=== PATIENT | female | born 1975 | race Caucasian/White ===

== ENCOUNTER 2016-06-27 12:38 | Emergency (ER) | payer OTHER ==
[~2016-06-27 12:38] MED LIST: ABIL15TA OR; CELE20TA OR; CLON1TAB PO; HUMI40KI SC; KLON0.5T OR; LAMI1TAB7 PO; LATU80TA PO; LITH300C PO; MACR50CA OR; OXTE600T PO; SERO200T OR; TRAZO50TA FT; TRIL600T OR; TRIL600T PO; ZIPR80CAP OR
[2016-06-27] MEDS ORDERED: methylPREDNISolone INJ 125 MG/2 ML VIAL (J2930) As Ordered ONE (14:26)
[2016-06-27] MEDS ORDERED: diphenhydrAMINE 25 MG CAP As Ordered ONE (14:26)
[2016-06-27] MEDS ORDERED: HYDROCORTISONE 1% CREAM 30 GM As Ordered ONE (14:29)
--- NOTE | 2016-06-27 14:55 | EDDOCDS ---
Physician Documentation [facility] Name: Kaylee Correa Age: 41 yrs Sex: Female : 1975 Arrival Date: 06/27/2016 Time: 12:38 Bed PD Private MD: [facility], [place] - Adults Disposition: 06/27/16 14:42 Discharged to Home/Self Care. Impression: Rash and other nonspecific skin eruption - Generalized, Urticaria. - Condition is Stable. - Discharge Instructions: Rash, [id number]. - Prescriptions for Benadryl 25 mg Oral Capsule - take 2 capsule by ORAL route every 6 hours As needed; 30 tablet. Prednisone 20 mg Oral Tablet - take 3 tablet by ORAL route once daily for 5 days; 15 tablet. - Medication Reconciliation, Local Pharmacy Hours form. - Follow up: Center - Adults [facility]; When: 1 - 2 days; Reason: Recheck today's complaints, Continuance of care. Follow up: Emergency Department; Reason: Worsening of conditions. - Problem is new. - Symptoms have improved. 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 ER if s/s worsen before f/u with them. Historical: - Allergies: no known allergies; - Home Meds: 1. clonazepam 1 mg Oral tab 1 tab 2 times per day 2. folic acid 1 mg Oral tab 1 tab once daily 3. Humira 40 mg/0.8 mL subcutaneous sykt twice a month 4. Latuda 80 mg oral tab 1 tab once daily 5. Vitamin D Unknown Oral daily 6. multivitamin Oral tab 1 tablet daily - PMHx: Bipolar disorder; Depression; Lupus; Rheumatoid Arthritis; Seizure Disorder; Parkinson's Disease; - PSHx: Cholecystectomy; ; Uterine Ablation; cystoscopy; - Social history: Smoking status: Patient uses tobacco products, current some day smoker. No barriers to communication noted, The patient speaks fluent Portuguese, Speaks appropriately for age. - Family history: Not pertinent. - : The pt / caregiver states he / she is not on anticoagulants. Home medication list is obtained from the patient. - Exposure Risk Screening:: None identified. 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 3 in. (160.02 cm) (R); Pain 5/10; 14:53 BP 150 / 89; Pulse 94; Resp 18; Temp 97.6; Pulse Ox 99% ; srm 12:40 Body Mass Index 28.70 (73.48 kg, 160.02 cm) rs6 MDM: 14:14 methylPREDNISolone Sodium Succinate 125 mg IM once ordered. ef1 14:14 diphenhydrAMINE 50 mg PO once ordered. ef1 14:14 Hydrocortisone Cream 1 % 1 applic Topical once ordered. ef1 14:22 Financial registration complete. 14:39 [facility] Payment Agreement was scanned into [email or web address] and attached to record. lg Administered Medications: 14:31 Drug: methylPREDNISolone Sodium Succinate 125 mg Route: IM; Site: left deltoid; kr3 14:31 Drug: diphenhydrAMINE 50 mg [diphenhydramine 25 mg capsule (2 caps)] Route: PO; kr3 14:32 Drug: Hydrocortisone 1 applic [hydrocortisone 1 % topical cream (1 applic)] Route: kr3 Topical; Site: affected area; Signatures: Tia Cameron RN RN srm Loly Riggs, Gabrielle Hernandez lg, PA-C PA-C ef1 Tarsha Barrow RN kr3 The chart was reviewed and I authenticate all verbal orders and agree with the evaluation and treatment provided.Attachments: 14:39 [facility] Payment Agreement lg MTDD
--- NOTE | 2016-06-27 14:55 | EDDOCDS ---
Nurse's Notes [facility] Name: Kaylee Correa Age: 41 yrs Sex: Female : 1975 Arrival Date: 06/27/2016 Time: 12:38 Bed PD Private MD: [facility] - Adults Diagnosis: Rash and other nonspecific skin eruption-Generalized;Urticaria Presentation: 06/27 12:42 Presenting complaint: Patient states: hives started on back today now spreading all srm over. no t on any new medicines or used and any new detergents. doesn't itch, it stings. no difficulty breathing or swallowing. Onset: The symptoms/episode began/occurred this morning. This patient has not experienced a previous allergic reaction. Anaphylaxis evaluation, the patient reports or I have noted the following symptoms which indicate a significant risk of anaphylaxis: urticaria. Adult Sepsis Screening: The patient does not have new or worsening altered mentation. Patient's respiratory rate is less than 22. Systolic blood pressure is greater than 100. Patient has a qSOFA score of 0- Negative Sepsis Screen. Suicide/Homicide risk assessment- the patient denies having any suicidal and/or homicidal ideations and does not present with any other emotional, behavioral or mental health complaints. 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 Transition of care: patient was not received from another setting of care. 12:42 Acuity: ALBARO Level 4 srm 12:42 Method Of Arrival: Walkin/Carried/Asstd srm Triage Assessment: 12:46 General: Appears in no apparent distress, Behavior is appropriate for age, cooperative. srm Pain: Pain currently is 5 out of 10 on a pain scale. HIV screening NA for this visit Offered previously. Respiratory: Reports no respiratory complaints. 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 clonazepam 1 mg Oral tab 1 tab 2 times per day 2. folic acid 1 mg Oral tab 1 tab once daily 3. Humira 40 mg/0.8 mL subcutaneous sykt twice a month 4. Latuda 80 mg oral tab 1 tab once daily 5. Vitamin D Unknown Oral daily 6. multivitamin Oral tab 1 tablet daily - PMHx: Bipolar disorder; Depression; Lupus; Rheumatoid Arthritis; Seizure Disorder; Parkinson's Disease; - PSHx: Cholecystectomy; ; Uterine Ablation; cystoscopy; - Social history: Smoking status: Patient uses tobacco products, current some day smoker. No barriers to communication noted, The patient speaks fluent Romanian, Speaks appropriately for age. - Family history: Not pertinent. - : The pt / caregiver states he / she is not on anticoagulants. Home medication list is obtained from the patient. - Exposure Risk Screening:: None identified. Screenin:22 Screening information is obtained from the patient. Fall risk: No risks identified. kr3 Assistance ADL's: requires no assistance with activities of daily living. Abuse/DV Screen: The patient / caregiver reports he/she is: not in a situation that causes fear, pain or injury. Nutritional screening: No deficits noted. Advance Directives: Currently, there is no health care proxy. home support is adequate. Assessment: 13:22 Reassessment: Patient appears in no apparent distress at this time. Pain: Denies pain. kr3 Respiratory: Airway is patent Respiratory effort is even, unlabored, Breath sounds are clear bilaterally. Denies shortness of breath. Derm: Rash noted that is red, raised. 14:53 General: Appears in no apparent distress, Behavior is appropriate for age, cooperative, srm hive faded in color. Neurological: No deficits noted. Respiratory: No deficits noted. Vital Signs: 12:40 BP 146 / 83 RA Sitting (auto/lg); Pulse 115; Resp 16; Temp 98.8(O); Pulse Ox 100% on rs6 R/A; Weight 73.48 kg (R); Height 5 ft. 3 in. (160.02 cm) (R); Pain 5/10; 14:53 BP 150 / 89; Pulse 94; Resp 18; Temp 97.6; Pulse Ox 99% ; srm 12:40 Body Mass Index 28.70 (73.48 kg, 160.02 cm) rs6 Vitals: 12:40 Log In Time: June 27, 2016 at 12:40. rs6 ED Course: 12:40 Patient visited by Missy Kang PCA. rs6 12:40 [facility] - Adults is Private Physician. rs6 12:40 Patient moved to Waiting rs6 12:41 Patient visited by Missy Kang PCA. rs6 12:41 Patient moved to Pre RCE rs6 12:43 Triage Initiated srm 13:20 Patient moved to Triage 1 sew 14:01 Gabrielle Potter PA-C is [facility]. ef1 14:01 Adriana Fernandez MD is Attending Physician. ef1 14:04 Patient visited by Gabrielle Potter PA-C. ef1 14:27 Patient moved to PD jf3 14:36 Patient visited by Gabrielle Potter PA-C. ef1 14:39 COUNTS INCLUDE 234 BEDS AT THE [facility] Payment Agreement was scanned into [employer] and attached to record. lg 14:42 [facility] is Referral Physician. ef1 14:53 The patient / caregiver is instructed regarding the plan of care and ED course. Patient srm has correct armband on for positive identification. 14:53 No IV's were initiated during this patient's visit. No procedures done that require srm assistance. Administered Medications: 14:31 Drug: methylPREDNISolone Sodium Succinate 125 mg Route: IM; Site: left deltoid; kr3 14:31 Drug: diphenhydrAMINE 50 mg [diphenhydramine 25 mg capsule (2 caps)] Route: PO; kr3 14:32 Drug: Hydrocortisone 1 applic [hydrocortisone 1 % topical cream (1 applic)] Route: kr3 Topical; Site: affected area; Order Results: There are currently no results for this order. Outcome: 14:42 Discharge ordered by Provider. ef1 14:53 Discharge Assessment: Patient awake, alert and oriented x 3. No cognitive and/or srm functional deficits noted. Patient verbalized understanding of disposition instructions. patient administered narcotics - no. The following High Risk Discharge criteria are identified: None. Discharged to home ambulatory, with family. Condition: good Condition: stable. Discharge instructions given to patient, Instructed on discharge instructions, follow up and referral plans. medication usage, Demonstrated understanding of instructions, medications, Pt was receptive of discharge instructions/ teaching. No special radiology studies were completed. Property :Personal belongings accompany Pt. 14:54 Patient left the ED. srm Signatures: Tia Cameron, RN RN Loly Cavanaugh, Reg Reg lg Tarsha Barrow,JUAN DAVID RN kr3 Gabrielle Potter PA-C PA-C ef1 Adriana Chris sew Missy Kang, STICK INSERTER STICK INSERTER rs6 Ted Pineda,JUAN DAVID RN jf3 MTDD
--- NOTE | 2016-06-29 15:55 | EDDOCDS ---
Physician Documentation [facility] Name: Kaylee Correa Age: 41 yrs Sex: Female : 1975 Arrival Date: 06/27/2016 Time: 12:38 Bed PD Private MD: [facility], [place] - Adults Disposition: 06/27/16 14:42 Discharged to Home/Self Care. Impression: Rash and other nonspecific skin eruption - Generalized, Urticaria. - Condition is Stable. - Discharge Instructions: Rash, [id number]. - Prescriptions for Benadryl 25 mg Oral Capsule - take 2 capsule by ORAL route every 6 hours As needed; 30 tablet. Prednisone 20 mg Oral Tablet - take 3 tablet by ORAL route once daily for 5 days; 15 tablet. - Medication Reconciliation, Local Pharmacy Hours form. - Follow up: Center - Adults [facility]; When: 1 - 2 days; Reason: Recheck today's complaints, Continuance of care. Follow up: Emergency Department; Reason: Worsening of conditions. - Problem is new. - Symptoms have improved. - Notes: Pt understands to f/u with her PCM and [employer]. ER if s/s worsen before f/u with them. Historical: - Allergies: no known allergies; - Home Meds: 1. clonazepam 1 mg Oral tab 1 tab 2 times per day 2. folic acid 1 mg Oral tab 1 tab once daily 3. Humira 40 mg/0.8 mL subcutaneous sykt twice a month 4. Latuda 80 mg oral tab 1 tab once daily 5. Vitamin D Unknown Oral daily 6. multivitamin Oral tab 1 tablet daily - PMHx: Bipolar disorder; Depression; Lupus; Rheumatoid Arthritis; Seizure Disorder; Parkinson's Disease; - PSHx: Cholecystectomy; ; Uterine Ablation; cystoscopy; - Social history: Smoking status: Patient uses tobacco products, current some day smoker. No barriers to communication noted, The patient speaks fluent Sinhala, Speaks appropriately for age. - Family history: Not pertinent. - : The pt / caregiver states he / she is not on anticoagulants. Home medication list is obtained from the patient. - Exposure Risk Screening:: None identified. 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 3 in. (160.02 cm) (R); Pain 5/10; 14:53 BP 150 / 89; Pulse 94; Resp 18; Temp 97.6; Pulse Ox 99% ; srm 12:40 Body Mass Index 28.70 (73.48 kg, 160.02 cm) rs6 MDM: 14:14 methylPREDNISolone Sodium Succinate 125 mg IM once ordered. ef1 14:14 diphenhydrAMINE 50 mg PO once ordered. ef1 14:14 Hydrocortisone Cream 1 % 1 applic Topical once ordered. ef1 14:22 Financial registration complete. lg 14:39 [facility] Payment Agreement was scanned into [employer] and attached to record. lg 15:38 T-Sheet-- Draft Copy was scanned into [employer] and attached to record. gb Administered Medications: 14:31 Drug: methylPREDNISolone Sodium Succinate 125 mg Route: IM; Site: left deltoid; kr3 14:31 Drug: diphenhydrAMINE 50 mg [diphenhydramine 25 mg capsule (2 caps)] Route: PO; kr3 14:32 Drug: Hydrocortisone 1 applic [hydrocortisone 1 % topical cream (1 applic)] Route: kr3 Topical; Site: affected area; Signatures: Tia Cameron, JUAN DAVID [place] Pati Arroyo, Reg Reg gb Loly Riggs, Reg Reg lg Gabrielle Potter, PA-C PAHiwot ef1 Tarsha Barrow RN kr3 The chart was reviewed and I authenticate all verbal orders and agree with the evaluation and treatment provided.Attachments: 14:39 [facility] Payment Agreement lg 15:38 T-Sheet-- Draft Copy gb Chart Complete MTDD
--- NOTE | 2016-06-29 15:55 | EDDOCDS ---
Physician Documentation [facility] Name: Kaylee Correa Age: 41 yrs Sex: Female : 1975 Arrival Date: 06/27/2016 Time: 12:38 Bed PD Private MD: [facility], [place] - Adults Disposition: 06/27/16 14:42 Discharged to Home/Self Care. Impression: Rash and other nonspecific skin eruption - Generalized, Urticaria. - Condition is Stable. - Discharge Instructions: Rash, [id number]. - Prescriptions for Benadryl 25 mg Oral Capsule - take 2 capsule by ORAL route every 6 hours As needed; 30 tablet. Prednisone 20 mg Oral Tablet - take 3 tablet by ORAL route once daily for 5 days; 15 tablet. - Medication Reconciliation, Local Pharmacy Hours form. - Follow up: Center - Adults [facility]; When: 1 - 2 days; Reason: Recheck today's complaints, Continuance of care. Follow up: Emergency Department; Reason: Worsening of conditions. - Problem is new. - Symptoms have improved. 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 ER if s/s worsen before f/u with them. Historical: - Allergies: no known allergies; - Home Meds: 1. clonazepam 1 mg Oral tab 1 tab 2 times per day 2. folic acid 1 mg Oral tab 1 tab once daily 3. Humira 40 mg/0.8 mL subcutaneous sykt twice a month 4. Latuda 80 mg oral tab 1 tab once daily 5. Vitamin D Unknown Oral daily 6. multivitamin Oral tab 1 tablet daily - PMHx: Bipolar disorder; Depression; Lupus; Rheumatoid Arthritis; Seizure Disorder; Parkinson's Disease; - PSHx: Cholecystectomy; ; Uterine Ablation; cystoscopy; - Social history: Smoking status: Patient uses tobacco products, current some day smoker. No barriers to communication noted, The patient speaks fluent Czech, Speaks appropriately for age. - Family history: Not pertinent. - : The pt / caregiver states he / she is not on anticoagulants. Home medication list is obtained from the patient. - Exposure Risk Screening:: None identified. 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 3 in. (160.02 cm) (R); Pain 5/10; 14:53 BP 150 / 89; Pulse 94; Resp 18; Temp 97.6; Pulse Ox 99% ; srm 12:40 Body Mass Index 28.70 (73.48 kg, 160.02 cm) rs6 MDM: 14:14 methylPREDNISolone Sodium Succinate 125 mg IM once ordered. ef1 14:14 diphenhydrAMINE 50 mg PO once ordered. ef1 14:14 Hydrocortisone Cream 1 % 1 applic Topical once ordered. ef1 14:22 Financial registration complete. lg 14:39 [facility] Payment Agreement was scanned into [employer] and attached to record. lg 15:38 T-Sheet-- Draft Copy was scanned into [employer] and attached to record. gb Administered Medications: 14:31 Drug: methylPREDNISolone Sodium Succinate 125 mg Route: IM; Site: left deltoid; kr3 14:31 Drug: diphenhydrAMINE 50 mg [diphenhydramine 25 mg capsule (2 caps)] Route: PO; kr3 14:32 Drug: Hydrocortisone 1 applic [hydrocortisone 1 % topical cream (1 applic)] Route: kr3 Topical; Site: affected area; Signatures: Tia Cameron, JUAN DAVID [place] [facility] Pati Arroyo, Reg Reg gb Loly Riggs, Reg Reg lg Gabrielle Potter, PA-C PAHiwot ef1 Tarsha Barrow RN kr3 The chart was reviewed and I authenticate all verbal orders and agree with the evaluation and treatment provided.Attachments: 14:39 [facility] Payment Agreement lg 15:38 T-Sheet-- Draft Copy gb Chart Complete MTDD
--- NOTE | 2016-06-29 15:55 | EDDOCDS ---
Nurse's Notes [facility] Name: Kaylee Correa Age: 41 yrs Sex: Female : 1975 Arrival Date: 06/27/2016 Time: 12:38 Bed PD Private MD: [facility] - Adults Diagnosis: Rash and other nonspecific skin eruption-Generalized;Urticaria Presentation: 06/27 12:42 Presenting complaint: Patient states: hives started on back today now spreading all srm over. no t on any new medicines or used and any new detergents. doesn't itch, it stings. no difficulty breathing or swallowing. Onset: The symptoms/episode began/occurred this morning. This patient has not experienced a previous allergic reaction. Anaphylaxis evaluation, the patient reports or I have noted the following symptoms which indicate a significant risk of anaphylaxis: urticaria. Adult Sepsis Screening: The patient does not have new or worsening altered mentation. Patient's respiratory rate is less than 22. Systolic blood pressure is greater than 100. Patient has a qSOFA score of 0- Negative Sepsis Screen. Suicide/Homicide risk assessment- the patient denies having any suicidal and/or homicidal ideations and does not present with any other emotional, behavioral or mental health complaints. 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 Transition of care: patient was not received from another setting of care. 12:42 Acuity: ALBARO Level 4 srm 12:42 Method Of Arrival: Walkin/Carried/Asstd srm Triage Assessment: 12:46 General: Appears in no apparent distress, Behavior is appropriate for age, cooperative. srm Pain: Pain currently is 5 out of 10 on a pain scale. HIV screening NA for this visit Offered previously. Respiratory: Reports no respiratory complaints. 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 clonazepam 1 mg Oral tab 1 tab 2 times per day 2. folic acid 1 mg Oral tab 1 tab once daily 3. Humira 40 mg/0.8 mL subcutaneous sykt twice a month 4. Latuda 80 mg oral tab 1 tab once daily 5. Vitamin D Unknown Oral daily 6. multivitamin Oral tab 1 tablet daily - PMHx: Bipolar disorder; Depression; Lupus; Rheumatoid Arthritis; Seizure Disorder; Parkinson's Disease; - PSHx: Cholecystectomy; ; Uterine Ablation; cystoscopy; - Social history: Smoking status: Patient uses tobacco products, current some day smoker. No barriers to communication noted, The patient speaks fluent Macedonian, Speaks appropriately for age. - Family history: Not pertinent. - : The pt / caregiver states he / she is not on anticoagulants. Home medication list is obtained from the patient. - Exposure Risk Screening:: None identified. Screenin:22 Screening information is obtained from the patient. Fall risk: No risks identified. kr3 Assistance ADL's: requires no assistance with activities of daily living. Abuse/DV Screen: The patient / caregiver reports he/she is: not in a situation that causes fear, pain or injury. Nutritional screening: No deficits noted. Advance Directives: Currently, there is no health care proxy. home support is adequate. Assessment: 13:22 Reassessment: Patient appears in no apparent distress at this time. Pain: Denies pain. kr3 Respiratory: Airway is patent Respiratory effort is even, unlabored, Breath sounds are clear bilaterally. Denies shortness of breath. Derm: Rash noted that is red, raised. 14:53 General: Appears in no apparent distress, Behavior is appropriate for age, cooperative, srm hive faded in color. Neurological: No deficits noted. Respiratory: No deficits noted. Vital Signs: 12:40 BP 146 / 83 RA Sitting (auto/lg); Pulse 115; Resp 16; Temp 98.8(O); Pulse Ox 100% on rs6 R/A; Weight 73.48 kg (R); Height 5 ft. 3 in. (160.02 cm) (R); Pain 5/10; 14:53 BP 150 / 89; Pulse 94; Resp 18; Temp 97.6; Pulse Ox 99% ; srm 12:40 Body Mass Index 28.70 (73.48 kg, 160.02 cm) rs6 Vitals: 12:40 Log In Time: June 27, 2016 at 12:40. rs6 ED Course: 12:40 Patient visited by Missy Kang PCA. rs6 12:40 [facility] - [facility] is Private Physician. rs6 12:40 Patient moved to Waiting rs6 12:41 Patient visited by Missy Kang PCA. rs6 12:41 Patient moved to Pre RCE rs6 12:43 Triage Initiated srm 13:20 Patient moved to Triage 1 sew 14:01 [facility] ef1 14:01 Adriana Fernandez MD is Attending Physician. ef1 14:04 Patient visited by Gabrielle Potter PA-C. ef1 14:27 Patient moved to PD2 jf3 14:36 Patient visited by Gabrielle Potter PA-C. ef1 14:39 [facility] Payment Agreement was scanned into [employer] and attached to record. lg 14:42 [facility] is Referral Physician. ef1 14:53 The patient / caregiver is instructed regarding the plan of care and ED course. Patient srm has correct armband on for positive identification. 14:53 No IV's were initiated during this patient's visit. No procedures done that require srm assistance. 15:38 T-Sheet-- Draft Copy was scanned into [employer] and attached to record. gb Administered Medications: 14:31 Drug: methylPREDNISolone Sodium Succinate 125 mg Route: IM; Site: left deltoid; kr3 14:31 Drug: diphenhydrAMINE 50 mg [diphenhydramine 25 mg capsule (2 caps)] Route: PO; kr3 14:32 Drug: Hydrocortisone 1 applic [hydrocortisone 1 % topical cream (1 applic)] Route: kr3 Topical; Site: affected area; Order Results: There are currently no results for this order. Outcome: 14:42 Discharge ordered by Provider. ef1 14:53 Discharge Assessment: Patient awake, alert and oriented x 3. No cognitive and/or srm functional deficits noted. Patient verbalized understanding of disposition instructions. patient administered narcotics - no. The following High Risk Discharge criteria are identified: None. Discharged to home ambulatory, with family. Condition: good Condition: stable. Discharge instructions given to patient, Instructed on discharge instructions, follow up and referral plans. medication usage, Demonstrated understanding of instructions, medications, Pt was receptive of discharge instructions/ teaching. No special radiology studies were completed. Property :Personal belongings accompany Pt. 14:54 Patient left the ED. srm Signatures: Tia Cameron, Pati Isabel RN, Reg Reg gb Loly Riggs, Reg Reg lg Tarsha Barrow RN RN kr3 Gabrielle Potter PA-C PA-C ef1 Adriana Chris, Missy, FAMILY PROTECTION SPECIALIST FAMILY PROTECTION SPECIALIST rs6 Ted Pineda,RN RN jf3 Chart Complete MTDD
== END 2016-06-27 14:54 | disposition home or self-care (01) ==
LOC: M ED 12:38
DX: L50.9 Urticaria, unspecified (principal); M06.9 Rheumatoid arthritis, unspecified; G20 Parkinson's disease; M32.9 Systemic lupus erythematosus, unspecified; F31.9 Bipolar disorder, unspecified; G40.909 Epilepsy, unspecified, not intractable, without status epilepticus; Z79.899 Other long term (current) drug therapy; F17.200 Nicotine dependence, unspecified, uncomplicated
CPT/HCPCS: 96372; 99283; J2930

== ENCOUNTER → 2016-08-24 | Outpatient (CLI) | payer OTHER ==
[~2016-08-24] VITALS: Ht 160 cm; Wt 68.0 kg
[~2016-08-24] MED LIST changes: +KLON1TAB PO; +MELO15TA4 PO; +NS 1,000 ML IV SCH; +PROPOFOL 200 MG/20 ML VIAL As Ordered ONE; +TERB250T57 PO
--- NOTE | 2016-08-24 14:37 | ROOR ---
Patient Name: Kaylee Correa Procedure Date: 08/24/2016 2:15 PM Date of : 1975 Age: 41 Room: [facility] Gender: Female Note Status: Finalized Procedure: Colonoscopy Indications: High risk colon cancer surveillance: Personal history of colonic polyps, Surveillance: Personal history of piecemeal removal of large sessile adenoma on last colonoscopy (less than 6 months ago) Providers: Sae KO MD Referring MD: Rodrigue ALAMO MD Requesting Provider: Medicines: Monitored Anesthesia Care Complications: No immediate complications. Procedure: Pre-Anesthesia Assessment: - The heart rate, respiratory rate, oxygen saturations, blood pressure, adequacy of pulmonary ventilation, and response to care were monitored throughout the procedure. The Colonoscope was introduced through the anus and advanced to the cecum, identified by appendiceal orifice and ileocecal valve. The colonoscopy was performed without difficulty. The patient tolerated the procedure well. The quality of the bowel preparation was good. Findings: The perianal and digital rectal examinations were normal. A 12 mm polyp was found in the cecum. The polyp was carpet-like. The polyp was removed with a piecemeal technique using a cold snare. Resection and retrieval were complete. The exam was otherwise without abnormality. Impression: - One flat 12 mm residual polyp in the cecum, removed piecemeal using a cold snare. Resected and retrieved. - Internal Hemorrhoids were small. - The examination was otherwise normal. Recommendation: - Repeat colonoscopy in 1 year for surveillance after piecemeal polypectomy. Sae Ko MD Sae KO MD 08/24/2016 2:37:23 PM This report has been signed electronically. Number of Addenda: 0 Note Initiated On: 08/24/2016 2:15 PM Estimated Blood Loss: Estimated blood loss: none.
[2016-08-24 15:03] VITALS: BP 131/71
== END ==
LOC: M OPP 11:45
PROVIDERS: ATTEND Internal Medicine Gastroenterology
DX: Z09 Encounter for follow-up examination after completed treatment for conditions other than malignant neoplasm (principal); Z86.010 Personal history of colon polyps; D12.0 Benign neoplasm of cecum; K64.8 Other hemorrhoids; F17.200 Nicotine dependence, unspecified, uncomplicated; F32.9 Major depressive disorder, single episode, unspecified; M32.9 Systemic lupus erythematosus, unspecified; M19.90 Unspecified osteoarthritis, unspecified site; Z85.42 Personal history of malignant neoplasm of other parts of uterus; G20 Parkinson's disease; Z79.899 Other long term (current) drug therapy

== ENCOUNTER 2017-06-26 16:51 | Emergency (ER) | payer OTHER ==
[2017-06-26] MEDS: PERCOCET 5MG/325MG TAB PO ×2 (17:24→20:31)
[2017-06-26] MEDS: IBUPROFEN 800 MG TAB PO (20:31)
== END 2017-06-26 20:33 | disposition home or self-care (01) ==
LOC: M ED 16:51
DX: S62.614A Displaced fracture of proximal phalanx of right ring finger, initial encounter for closed fracture (principal); S62.616A Displaced fracture of proximal phalanx of right little finger, initial encounter for closed fracture; M25.531 Pain in right wrist; W07.XXXA Fall from chair, initial encounter; Y92.009 Unspecified place in unspecified non-institutional (private) residence as the place of occurrence of the external cause; L40.9 Psoriasis, unspecified; M32.9 Systemic lupus erythematosus, unspecified; F31.9 Bipolar disorder, unspecified; F17.210 Nicotine dependence, cigarettes, uncomplicated; Z79.899 Other long term (current) drug therapy
CPT/HCPCS: 73110

== ENCOUNTER 2017-12-05 15:47 | Emergency (ER) | payer OTHER ==
[2017-12-05] MEDS: IBUPROFEN 800 MG TAB PO (17:27)
[2017-12-05] MEDS: LISSAMINE GREEN OPHTH 1.5 MG STRIP OD (17:27)
[2017-12-05] MEDS: TETRACAINE 0.5% OPHTH SOLN 4ML OD (17:28)
== END 2017-12-05 18:04 | disposition home or self-care (01) ==
LOC: M ED 15:47
DX: L03.213 Periorbital cellulitis (principal); M32.9 Systemic lupus erythematosus, unspecified; Z72.0 Tobacco use; Z79.899 Other long term (current) drug therapy
CPT/HCPCS: 99283

== ENCOUNTER 2017-12-31 09:17 | Emergency (ER) | payer OTHER ==
[2017-12-31] MEDS: NORCO, ANEXSIA 5/325MG TABLET (HYDROcodone/ACETAMINOPHEN) PO (10:29)
[2017-12-31] MEDS: KETOROLAC TROMETHAMINE 10 MG TAB PO (10:29)
== END 2017-12-31 10:41 | disposition home or self-care (01) ==
LOC: M ED 09:17
DX: S80.01XA Contusion of right knee, initial encounter (principal); Y92.89 Other specified places as the place of occurrence of the external cause; W19.XXXA Unspecified fall, initial encounter; M32.9 Systemic lupus erythematosus, unspecified; F43.10 Post-traumatic stress disorder, unspecified; F31.9 Bipolar disorder, unspecified; F41.8 Other specified anxiety disorders
CPT/HCPCS: 73564

== ENCOUNTER → 2018-03-29 | Outpatient (REF) | payer OTHER, MEDICAID ==
[2018-03-29 19:07] LABS: APPEARANCE, URINE HAZY (CLEAR); BACTERIA, URINE AUTO 3+ (NEGATIVE); BILIRUBIN, URINE AUTO NEGATIVE (NEGATIVE); BLOOD, URINE BLOOD NEGATIVE (NEGATIVE); COLOR, URINE YELLOW (YELLOW); GLUCOSE, URINE (UA) AUTO NEGATIVE (NEGATIVE); KETONE, URINE AUTO NEGATIVE (NEGATIVE); LEUKOCYTE ESTERASE, URINE AUTO 1+ (NEGATIVE); MUCUS, URINE SMALL (NEGATIVE); NITRITE, URINE AUTO POSITIVE (NEGATIVE); PROTEIN, URINE AUTO NEGATIVE (NEGATIVE); RBC, URINE AUTO 2 /HPF (0-3); SPECIFIC GRAVITY URINE AUTO 1.014 (1.002-1.035); SQUAMOUS EPITHELIAL CELL UR AU 1 /HPF (0-6); WBC, URINE AUTO 18 /HPF (0-3)
[2018-03-29 19:20] LABS: BASO % 0.3 % (0.0-1.0); EOS # 0.4 10^3/uL (0.0-0.50); EOS % 3.5 % (0.0-3.0); HEMATOCRIT 46.1 % (36.0-47.0); HEMOGLOBIN 15.4 g/dl (12.0-15.5); IMMATURE GRANULOCYTE % 0.4 % (0-3.0); LYMPH # 2.4 10^3/uL (1.5-4.5); LYMPH % 22.9 % (24.0-44.0); MEAN CORPUSCULAR HEMOGLOBIN 30.7 pg (27.0-33.0); MEAN CORPUSCULAR HGB CONC 33.4 g/dl (32.0-36.5); MONO # 0.8 10^3/uL (0.0-0.8); MONO % 7.2 % (0.0-5.0); NEUTROPHILS # 6.9 10^3/uL (1.8-7.7); NEUTROPHILS % 65.7 % (36.0-66.0); PLATELET COUNT, AUTOMATED 231 10^3/uL (150-450); RED BLOOD COUNT 5.01 10^6/uL (4.00-5.40); RED CELL DISTRIBUTION WIDTH 13.2 % (11.5-14.5); WHITE BLOOD COUNT 10.5 10^3/uL (4.0-10.0)
[2018-03-29 19:34] LABS: ESTIMATED AVERAGE GLUCOSE 103 MG/DL (60-110); HEMOGLOBIN A1c 5.2 %
[2018-03-29 19:43] LABS: ERYTHROCYTE SEDIMENTATION RATE 16 mm/hr (0-20)
[2018-03-29 19:46] LABS: ALBUMIN 3.8 GM/DL (3.2-5.2); ALBUMIN/GLOBULIN RATIO 1.06 (1.00-1.93); ALKALINE PHOSPHATASE 79 U/L (45-117); ALT/SGPT 16 U/L (12-78); ANION GAP 5 MEQ/L (8-16); AST/SGOT 10 U/L (7-37); BILIRUBIN,TOTAL 0.3 MG/DL (0.2-1.0); BLOOD UREA NITROGEN 8 MG/DL (7-18); C REACTIVE PROTEIN QUANTITATIV 7.95 MG/DL (0.00-0.30); CARBON DIOXIDE LEVEL 29 MEQ/L (21-32); CHLORIDE LEVEL 102 MEQ/L (98-107); CHOLESTEROL LEVEL 194 MG/DL (<200); CHOLESTEROL RISK RATIO 4.731 (<5); CREATININE FOR GFR 0.54 MG/DL (0.55-1.30); GLOMERULAR FILTRATION RATE > 60.0 (>58); GLUCOSE, FASTING 100 MG/DL (70-100); HDL CHOLESTEROL 41 MG/DL (>40); LDL CHOLESTEROL 131 MG/DL (<100); NON-HDL-C 153 MG/DL; POTASSIUM SERUM 3.9 MEQ/L (3.5-5.1); SODIUM LEVEL 136 MEQ/L (136-145); THYROID STIMULATING HORMONE 0.794 uIU/ML (0.358-3.740); TOTAL PROTEIN 7.4 GM/DL (6.4-8.2); TRIGLYCERIDES LEVEL 110 MG/DL (<150)
[2018-03-29 19:50] LABS: TOTAL 25(OH) VITAMIN D 10.4 NG/ML (30.0-100.0)
[2018-03-31 14:35] LABS: ANTI DOUBLE STRAND-DNA AB 1 IU/mL (0-9); ANTINUCLEAR ANTIBODIES DIRECT Negative (Negative)
== END ==
LOC: M LAB REF 18:42
DX: R94.4 Abnormal results of kidney function studies (principal)

== ENCOUNTER → 2018-09-13 | Outpatient (REF) | payer OTHER, MEDICAID ==
[~2018-09-13] MED LIST changes: +AUGM875T28 PO; -CLON1TAB PO; +CLON1TAB8 PO; +HYDR-3363; +HYDR-3715 PO; +IBUP80TA PO; +INGR80CA; +KETO10TAB PO; +LAMO100T PO; +LATU120T; +MELO15TA28 PO; -MELO15TA4 PO; +MIRT30TA3; -NS 1,000 ML IV SCH; -PROPOFOL 200 MG/20 ML VIAL As Ordered ONE; +TERB250T12 PO; -TERB250T57 PO; +TRAZ1TAB6 FT; -TRAZO50TA FT; +VISI0.054 OP
== END ==
LOC: M SFHCPLAZ 10:11
PROVIDERS: ATTEND Dermatology
DX: L30.9 Dermatitis, unspecified (principal)

== ENCOUNTER → 2018-09-14 | Outpatient (REF) | payer OTHER ==
[2018-09-14 18:56] LABS: BASO % 0.2 % (0.0-1.0); EOS # 0.2 10^3/uL (0.0-0.50); HEMATOCRIT 46.4 % (36.0-47.0); HEMOGLOBIN 14.9 g/dl (12.0-15.5); LYMPH # 2.6 10^3/uL (1.5-4.5); MEAN CORPUSCULAR HEMOGLOBIN 30.4 pg (27.0-33.0); MEAN CORPUSCULAR HGB CONC 32.1 g/dl (32.0-36.5); MEAN CORPUSCULAR VOLUME 94.7 fl (80.0-96.0); MONO # 0.5 10^3/uL (0.0-0.8); MONO % 5.2 % (0.0-5.0); NEUTROPHILS # 6.7 10^3/uL (1.8-7.7); NEUTROPHILS % 66.3 % (36.0-66.0); PLATELET COUNT, AUTOMATED 288 10^3/uL (150-450); WHITE BLOOD COUNT 10.1 10^3/uL (4.0-10.0)
[2018-09-14 19:11] LABS: ALBUMIN 3.9 GM/DL (3.2-5.2); ALT/SGPT 14 U/L (12-78); BILIRUBIN,DIRECT < 0.1 MG/DL (0.0-0.2); BILIRUBIN,TOTAL 0.2 MG/DL (0.2-1.0); C REACTIVE PROTEIN QUANTITATIV 1.99 MG/DL (0.00-0.30); COMPLEMENT C3 130 MG/DL (90-180); COMPLEMENT C4 26 MG/DL (10-40); TOTAL PROTEIN 7.5 GM/DL (6.4-8.2)
[2018-09-14 20:03] LABS: ERYTHROCYTE SEDIMENTATION RATE 7 mm/hr (0-20)
[2018-09-15 15:21] LABS: HEPATITIS B SURFACE ANTIBODY NEGATIVE (POSITIVE); HEPATITIS B SURFACE ANTIGEN NEGATIVE (NEGATIVE); HIV 1&2 SCREEN CENTAUR NEGATIVE (NEGATIVE)
[2018-09-17 00:06] LABS: ANA (HEP2) Negative (.); HEPATITIS B CORE ANTIBODY IGG Negative (Negative)
== END ==
LOC: M SFHCPLAZ 15:14
PROVIDERS: ATTEND Dermatology
DX: R21 Rash and other nonspecific skin eruption (principal)

== ENCOUNTER → 2019-08-22 | Outpatient (CLI) | payer OTHER ==
[~2019-08-22] MED LIST changes: -LAMO100T PO; +LAMO100T3 PO
== END ==
LOC: M LAB 10:04
PROVIDERS: ATTEND Dermatology
DX: Z79.899 Other long term (current) drug therapy (principal)

== ENCOUNTER → 2020-04-02 | Outpatient (CLI) | payer OTHER | LOC: M LAB 16:03 | PROVIDERS: ATTEND Dermatology | DX: L40.9 Psoriasis, unspecified (principal) ==

== ENCOUNTER → 2021-07-15 | Outpatient (CLI) | payer OTHER ==
[~2021-07-15] MED LIST changes: -LATU80TA PO; +LATU80TA2 PO; -TERB250T12 PO; +TERB250T91 PO
== END ==
LOC: M LAB 16:17
PROVIDERS: ATTEND Nurse Practitioner Family
DX: L40.9 Psoriasis, unspecified (principal)

== ENCOUNTER → 2022-02-02 | Outpatient (CLI) | payer OTHER | LOC: M RAD 09:14 | PROVIDERS: ATTEND Nurse Practitioner Family | DX: L40.9 Psoriasis, unspecified (principal) ==

== ENCOUNTER → 2022-08-09 | Outpatient (REF) | payer OTHER ==
[2022-08-09 13:49] LABS: CHOLESTEROL RISK RATIO 3.95 (<5); HDL CHOLESTEROL 47.8 MG/DL (>40); LDL CHOLESTEROL 115.6 MG/DL (<100); NON-HDL-C 141.2 MG/DL
== END ==
LOC: M LAB REF 12:31
PROVIDERS: ATTEND Nurse Practitioner Family
DX: R79.89 Other specified abnormal findings of blood chemistry (principal)

== ENCOUNTER → 2023-09-30 | Outpatient (REF) | payer OTHER ==
[~2023-09-30] MED LIST changes: -KLON1TAB PO; +KLON1TAB13 PO
== END ==
LOC: M LAB REF 12:26
PROVIDERS: ATTEND Nurse Practitioner Family
DX: R30.0 Dysuria (principal)

== ENCOUNTER → 2024-07-06 | Outpatient (CLI) | payer OTHER | LOC: M WUC 10:50 | PROVIDERS: ATTEND Physician Assistant | DX: M25.562 Pain in left knee (principal); M25.552 Pain in left hip; M17.12 Unilateral primary osteoarthritis, left knee; M16.12 Unilateral primary osteoarthritis, left hip ==

== ENCOUNTER 2025-04-26 11:17 | Emergency (ER) | payer OTHER ==
[~2025-04-26] VITALS: Ht 160 cm; Wt 79.0 kg
[2025-04-26] MEDS ORDERED: IBUP200C25 PO (11:51)
[2025-04-26] MEDS ORDERED: ACET-907 PO (11:51)
[2025-04-26] MEDS: KETOROLAC 30 MG/ML 1 ML VIAL IV ONE (14:28)
[2025-04-26 14:47] LABS: BASO # 0.0 10^3/uL (0.0-0.2); BASO % 0.2 % (0.0-1.0); EOS # 0.2 10^3/uL (0.0-0.5); EOS % 2.0 % (0.0-3.0); LYMPH # 3.9 10^3/uL (1.5-5.0); LYMPH % 33.9 % (24.0-44.0); MONO # 0.6 10^3/uL (0.0-0.8); MONO % 5.3 % (2.0-8.0); NEUTROPHILS # 6.6 10^3/uL (1.5-8.5); NEUTROPHILS % 58.2 % (36.0-66.0); PLATELET COUNT, AUTOMATED 372 10^3/uL (150-450)
[2025-04-26] MEDS: LIDOCAINE 1% MDV 20 ML VIAL SC ONE (15:05)
[2025-04-26 15:17] LABS: C REACTIVE PROTEIN QUANTITATIV 2.69 MG/DL (<1.0); CALCIUM LEVEL 9.6 MG/DL (8.5-10.1); CARBON DIOXIDE LEVEL 28 MMOL/L (20-31); CHLORIDE LEVEL 103 MMOL/L (98-107); CREATININE FOR GFR 0.51 MG/DL (0.55-1.30); GLOMERULAR FILTRATION RATE > 90.0 (>51); POTASSIUM SERUM 4.4 MMOL/L (3.5-5.1); SODIUM LEVEL 139 MMOL/L (136-145)
[2025-04-26] MEDS ORDERED: CEPH500C PO (15:42)
[2025-04-26] MEDS: cefTRIAXone SOD 1 GM in DEXTROSE 5% (D5W) ADV/MINI-BAG 50 ML IV ONE (15:45)
[2025-04-26 16:12] VITALS: BP 126/73; TEMP 98.2; O2SAT 99
[2025-04-29] MEDS ORDERED: CLIN-250 PO (08:34)
== END 2025-04-26 16:19 | disposition home or self-care (01) ==
LOC: M ED 11:17
DX: L02.411 Cutaneous abscess of right axilla (principal); F17.210 Nicotine dependence, cigarettes, uncomplicated; Z79.1 Long term (current) use of non-steroidal anti-inflammatories (NSAID); Z79.2 Long term (current) use of antibiotics
CPT/HCPCS: 10060; 80048; 85025; 86140; 87040; 87070; 87077; 87186; 96365; 96375; 99284; J0696; J1885

== ENCOUNTER 2025-05-18 10:57 | Emergency (ER) | payer OTHER ==
[~2025-05-18] VITALS: Ht 160 cm; Wt 79.3 kg
[~2025-05-18 10:57] MED LIST changes: +ACET-907 PO; +CEPH500C PO; +CLIN-250 PO; +IBUP200C25 PO
[2025-05-18 11:00] VITALS: BP 137/77; TEMP 98.6; O2SAT 99
[2025-05-18] MEDS: KETOROLAC 30 MG/ML 1 ML VIAL IM ONE (14:00)
== END 2025-05-18 14:39 | disposition home or self-care (01) ==
LOC: M ED 10:57
DX: S60.211A Contusion of right wrist, initial encounter (principal); S30.0XXA Contusion of lower back and pelvis, initial encounter; Y92.9 Unspecified place or not applicable; Y93.9 Activity, unspecified; Y99.9 Unspecified external cause status; W19.XXXA Unspecified fall, initial encounter; Z79.1 Long term (current) use of non-steroidal anti-inflammatories (NSAID); Z79.2 Long term (current) use of antibiotics
CPT/HCPCS: 70450; 72125; 72220; 73110; 96372; 99284; J1885